=== PATIENT | male | born 1955 | race Caucasian/White ===

== ENCOUNTER 2018-08-28 08:36 | Day surgery (SDC) | payer BC ==
[2018-08-28] MEDS ORDERED: LIDOCAINE 2% MDV (20MG/ML) 20ML VIAL IV ONE (08:37)
[2018-08-28] MEDS ORDERED: PROPOFOL 10 MG/ML VIAL IV ONE (08:37)
--- NOTE | 2018-08-28 14:10 | Operative Note ---
OPERATION: COLONOSCOPY to the cecum with cold snare polypectomy x4. INDICATION: Colorectal cancer screening. He believes his last colonoscopy was more than 10 years ago. ANESTHESIA: Intravenous sedation was administered by the department of anesthesiology and included Diprivan titrated to effect. PROCEDURE: Following informed consent from this alert individual including a discussion of the risks and benefits of the procedure and an opportunity for the patient to ask questions, the patient was in the left lateral decubitus position. A digital rectal examination was performed. No abnormalities were noted. Following this, the Olympus [id number] video colonoscope was inserted into the rectum without resistance. The rectal mucosa had a normal appearance with normal folds and distensibility. The colonoscope was advanced up through the colon to the level of the cecum with some difficulty due to redundancy of the colon. Abdominal pressure support was supplied by the nursing staff and the cecum was reached. The base of the cecum was well defined by noting the appendiceal orifice and ileocecal valve. There were 4 polyps noted in total, 2 noted in antegrade inspection in the transverse colon each measuring 5-6 mm in size. These were removed with cold snare polypectomy and suctioned through the colonoscope into a collection trap. At the cecum, there was a 3rd polyp noted also measuring 6 mm in size likewise removed with cold snare polypectomy and recovered. There was a 4th polyp noted in the ascending colon measuring 5-6 mm in size also removed with cold snare and suctioned through the colonoscope into a collection trap. The colon preparation overall was good. There were a few scattered diverticula noted in the sigmoid colon upon withdrawal. Upon reaching the rectum, retroflexion accomplished revealed small- to moderate-sized internal and external hemorrhoids. The endoscope was straightened and withdrawn. The patient tolerated procedure well and was returned to recovery area in stable condition. IMPRESSION: 1. A 6 mm cecal polyp removed with cold snare polypectomy. 2. A 6 mm ascending colon polyp removed with cold snare polypectomy. 3. Two transverse colon polyps measuring 5-6 mm in size removed with cold snare polypectomy. 4. Mild sigmoid diverticulosis. 5. Internal and external hemorrhoids, small to moderate in size. RECOMMENDATIONS: Further recommendations will be forthcoming pending of pathology obtained today. Followup will also be with Christopher Riley DO. As always, thank you for allowing me to participate in the care of your patient. CC: Cassidy MARIA
== END 2018-08-28 11:00 | disposition home or self-care (01) ==
LOC: HOP 08:36
PROVIDERS: ATTEND Internal Medicine Gastroenterology
DX: Z12.11 Encounter for screening for malignant neoplasm of colon (principal); D12.2 Benign neoplasm of ascending colon; D12.0 Benign neoplasm of cecum; D12.3 Benign neoplasm of transverse colon; K57.30 Diverticulosis of large intestine without perforation or abscess without bleeding; K21.9 Gastro-esophageal reflux disease without esophagitis